=== PATIENT | female | born 1965 | race American Indian/Alaskan Native ===

== ENCOUNTER 2019-12-28 09:20 | Emergency (ER) | payer SELFPAY ==
[2019-12-28] MEDS ORDERED: predniSONE 20 MG TAB PO ONE (10:33)
--- NOTE | 2019-12-28 10:43 | Emergency Department Report ---
ED General Adult HPI - General Chief complaint: Adult Asthma Stated complaint: VANESSA Time Seen by Provider: 12/28/19 10:15 Source: EMS Mode of arrival: Stretcher Limitations: No Limitations - History of Present Illness Initial comments: This is a 54-year-old female apparently new to this area and this facility with a chief complaint of wheezing and no primary care physician yet. Family states states she has history of hypertension. Patient indicates she is not on any current medication. She is hard of hearing. She is able to communicate however with limited ability. -: Gradual, hour(s) Severity scale (0 -10): 0 Quality: other (Describes some vague chest discomfort) - Related Data Previous Rx's Medication Instructions Recorded Last Taken Type Albuterol Sulfate [Albuterol 0.63% 0.63 mg IH TID #90 vial.neb 12/28/19 Unknown Rx NEBS] Albuterol Sulfate [Proventil Hfa] 6.7 gm IH Q6H PRN #1 hfa.aer.ad 12/28/19 Unkno wn Rx Nebulizer [Aeroneb Go Nebulizer] 1 each MC TID #1 each 12/28/19 Unknown Rx predniSONE [Deltasone] 40 mg PO ONCE #14 tablet 12/28/19 Unknown Rx Allergies Allergy/AdvReac Type Severity Reaction Status Date / Time Penicillins Allergy Unknown Verified 12/28/19 09:48 ED Review of Systems ROS: Stated complaint: VANESSA Other details as noted in HPI ED Past Medical Hx - Past Medical History Hx Hypertension: Yes Hx CVA: Yes Hx Asthma: Yes - Surgical History Past Surgical History?: No - Social History Smoking Status: Current Every Day Smoker Substance Use Type: Alcohol - Medications Home Medications: Home Medications Medication Instructions Recorded Confirmed Last Taken Type Albuterol Sulfate [Albuterol 0.63% 0.63 mg IH TID #90 vial.neb 12/28/19 Unknown Rx NEBS] Albuterol Sulfate [Proventil Hfa] 6.7 gm IH Q6H PRN #1 hfa.aer.ad 12/28/19 Unknown Rx Nebulizer [Aeroneb Go Nebulizer] 1 each MC TID #1 each 12/28/19 Unknown Rx predniSONE [Deltasone] 40 mg PO ONCE #14 tablet 12/28/19 Unknown Rx ED Physical Exam - General Limitations: No Limitations General appearance: alert, in no apparent distress, cachectic (Various static had a minimal) - Head Head exam: Present: atraumatic, normocephalic - Eye Eye exam: Present: normal appearance. Absent: scleral icterus - ENT ENT exam: Present: mucous membranes moist - Neck Neck exam: Present: normal inspection. Absent: tenderness, meningismus - Respiratory Respiratory exam: Present: rhonchi (Slight end expiratory rhonchi). Absent: respiratory distress - Cardiovascular Cardiovascular Exam: Present: regular rate, normal rhythm. Absent: systolic murmur, diastolic murmur, rubs, gallop - GI/Abdominal GI/Abdominal exam: Present: soft, normal bowel sounds. Absent: distended, tenderness, guarding, rebound - Extremities Exam Extremities exam: Present: normal inspection - Back Exam Back exam: Present: other (Kyphoscoliotic spine) - Neurological Exam Neurological exam: Present: alert, oriented X3, CN II-XII intact. Absent: motor sensory deficit - Psychiatric Psychiatric exam: Present: normal affect, normal mood - Skin Skin exam: Present: warm, dry, intact, normal color. Absent: rash ED Course Vital Signs 12/28/19 09:53 Temperature 98.1 F Pulse Rate 101 H Respiratory 18 Rate Blood Pressure 123/89 [Left] O2 Sat by Pulse 98 Oximetry - Reevaluation(s) Reevaluation #1: Patient with mild residual wheezing. She will be given another DuoNeb. EKG will be reviewed. As appropriate, she will be discharged. 12/28/19 12:45 ED Medical Decision Making - Lab Data Result diagrams: 12/28/19 10:17 12/28/19 11:25 Laboratory Results - last 24 hr 12/28/19 11:25 Sodium 144 Potassium 3.8 Chloride 109.5 H Carbon Dioxide 22 Anion Gap 16 BUN 16 Creatinine 0.8 Estimated GFR > 60 BUN/Creatinine Ratio 20 Glucose 97 Calcium 9.0 Magnesium 2.00 Total Bilirubin 0.20 Direct Bilirubin < 0.2 AST 19 ALT 7 Alkaline Phosphatase 92 Troponin T < 0.010 Total Protein 7.2 Albumin 3.8 L Albumin/Globulin Ratio 1.1 Laboratory Results - last 24 hr 12/28/19 11:25 Sodium 144 Potassium 3.8 Chloride 109.5 H Carbon Dioxide 22 Anion Gap 16 BUN 16 Creatinine 0.8 Estimated GFR > 60 BUN/Creatinine Ratio 20 Glucose 97 Calcium 9.0 Magnesium 2.00 Total Bilirubin 0.20 Direct Bilirubin < 0.2 AST 19 ALT 7 Alkaline Phosphatase 92 Troponin T < 0.010 Total Protein 7.2 Albumin 3.8 L Albumin/Globulin Ratio 1.1 - EKG Data -: EKG Interpreted by Me EKG shows normal: sinus rhythm, axis, intervals, QRS complexes, ST-T waves Rate: normal - EKG Data Interpretation: normal EKG - Radiology Data Radiology results: image reviewed (Kyphoscoliotic spine. Chronic changes, no acute process) Critical care attestation.: If time is entered above; I have spent that time in minutes in the direct care of this critically ill patient, excluding procedure time. ED Disposition Clinical Impression: COPD exacerbation, Atypical chest pain Disposition: TO HOME OR SELFCARE Is pt being admited?: No Does the pt Need Aspirin: No Condition: Stable Instructions: Chronic Obstructive Pulmonary Disease, [id number], Nonspecific Chest Pain, Adult, Chest Pain (ED), Chronic Obstructive Pulmonary Disease (ED) Additional Instructions: Return any acute change or problem. Follow[facility] with the [facility]. Prescriptions: Nebulizer [Aeroneb Go Nebulizer] 1 each MC TID #1 each Albuterol Sulfate [Albuterol 0.63% NEBS] 0.63 mg IH TID #90 vial.neb predniSONE [Deltasone] 40 mg PO ONCE #14 tablet Albuterol Sulfate [Proventil Hfa] 6.7 gm IH Q6H PRN #1 hfa.aer.ad PRN Reason: Wheezing Referrals: [facility] [Provider Group] - 2-3 Days HEART Score - HEART Score History: Slightly suspicious EKG: Normal Age: 45-65 Risk factors: 1-2 risk factors Troponin: Troponin T < 0.010 ng/mL (0.00-0.029) 12/28/19 11:25 Troponin: < normal limit HEART Score: 2 - Critical Actions Critical Actions: 0-3 pts:0.9-1.7%risk of adverse cardiac event.Candidate for d ischarge BRIDGER score - Bridger Score Age > 65: (0) No Aspirin use within the Past 7 Days: (0) No 3 or more CAD Risk Factors: (0) No 2 or more Angina events in past 24 hrs: (0) No Known CAD with more than 50% Stenosis: (0) No Elevated Cardiac Markers: (0) No ST Deviation Greater than 0.5mm: (0) No BRIDGER Score: 0
--- NOTE | 2019-12-28 11:16 | XRay Report ---
CHEST 1 VIEW 12/28/2019 10:45 AM INDICATION / CLINICAL INFORMATION: VANESSA. Shortness of breath COMPARISON: None available. FINDINGS: SUPPORT DEVICES: None. HEART / MEDIASTINUM: No significant abnormality. LUNGS / PLEURA: No significant pulmonary or pleural abnormality. No pneumothorax. ADDITIONAL FINDINGS: Moderate scoliosis with convexity towards right. Old healed right rib fractures IMPRESSION: 1. No acute findings. Signer Name: Emilio Brice MD Signed: 12/28/2019 11:12 AM Workstation Name: [id number]
[2019-12-28 12:01] LABS: Alanine Aminotransferase 7 units/L (7-56); Albumin 3.8 g/dL (3.9-5); BUN/Creatinine Ratio 20; Bilirubin,Direct < 0.2 mg/dL (0-0.2); Blood Urea Nitrogen 16 mg/dL (7-17); Hemolysis Index 30
[2019-12-28 12:41] LABS: Hematocrit 42.6 % (30.3-42.9); Hemoglobin 13.6 gm/dl (10.1-14.3); Mean Corpuscular HGB Conc 32 % (30-34); Mean Corpuscular Volume 90 fl (79-97); Platelet Count 265 K/mm3 (140-440); Red Blood Count 4.71 M/mm3 (3.65-5.03); Red Cell Distribution Width 14.4 % (13.2-15.2)
[2019-12-28] MEDS ORDERED: IPRATROPIUM/ALBUTEROL SULFATE 3 ML AMPUL.NEB IH ONE (12:43)
[2019-12-28 14:43] VITALS: BP 133/92
== END 2019-12-28 14:45 | disposition home or self-care (01) ==
LOC: ED 09:20
DX: J44.1 Chronic obstructive pulmonary disease with (acute) exacerbation (principal); I10 Essential (primary) hypertension; F17.200 Nicotine dependence, unspecified, uncomplicated; Z86.73 Personal history of transient ischemic attack (TIA), and cerebral infarction without residual deficits; Z88.0 Allergy status to penicillin
CPT/HCPCS: 36415; 71045; 80048; 80076; 83735; 84484; 85025; 93005; 99284; J7512